=== PATIENT | male | born 1930 | race Asian ===

== ENCOUNTER 2016-07-27 19:02 | Emergency (ER) | payer MEDICARE ==
[~2016-07-27] VITALS: Ht 172.7 cm; Wt 99.8 kg
[~2016-07-27 19:02] MED LIST: AMLO10TA88 PO; CLOP75TA2 PO; FURO-150 PO; GLIP10TA11 PO; HYDR-4039 PO; METF-305 PO; METO100T PO; NORT10CA5 PO; SIMV10TA6 PO
[2016-07-27 19:08] VITALS: BP_SYST 181
--- NOTE | 2016-07-27 19:08 | NUR ---
Placed in room 07 . Placed on belly dancer, blood pressure machine and pulse oximeter. To gown for exam. Side rails up. Report given to KAMLESH Vuong.
--- NOTE | 2016-07-27 19:10 | NUR ---
Patient AAO x4, sitting in bed, able to verbalize needs, patient c/o N/V X 1 HR. Patient states he had a cheeseburger "1 hr ago" and then began to vomit profusely. Denies pain, denies chest pain, denies shortness of breath. Patient BP and HR elevated, MD made aware. No acute distress noted. Will continue to monitor.
--- NOTE | 2016-07-27 19:14 | NUR ---
ER at bedside examining patient.
[2016-07-27] MEDS ORDERED: MAG HYDROX/AL HYDROX/SIMETH 30 ML, BELLADONNA ALKALOIDS/PHENOBARB 10 ML, LIDOCAINE VISC... PO ONE ×3 (19:15)
[2016-07-27] MEDS ORDERED: KETOROLAC TROMETHAMINE 30 MG VIAL IVP ONE (19:15)
[2016-07-27] MEDS ORDERED: ONDANSETRON HCL 4 MG/2 ML VIAL IVP ONE (19:15)
--- NOTE | 2016-07-27 19:30 | NUR ---
Patient daughter at bedside.
[2016-07-27 19:47] LABS: HEMOGLOBIN 13.6 g/dL (14.0-18.0); MEAN CORPUSCULAR HEMOGLOBIN 31 pg (27-31); MEAN CORPUSCULAR HGB CONC 33 % (32-36); MEAN CORPUSCULAR VOLUME 95 fL (79.0-98.0); PLATELET COUNT (AUTO) 205 K/uL (130-430); RED BLOOD CELL COUNT(AUTO) 4.34 MIL/uL (4.2-6.2); RED CELL DISTRIBUTION WIDTH 14.9 % (9.0-15.0); WHITE BLOOD COUNT (AUTO) 24.4 K/uL (4.8-10.8)
[2016-07-27 19:48] LABS: ANION GAP 10 (5-15); CHLORIDE 102 mmol/L (98-107); CREATININE 3.18 mg/dL (0.55-1.30); GLUCOSE 142 mg/dL (70-99); POTASSIUM 4.4 mmol/L (3.5-5.1); SODIUM SERUM 140 mmol/L (136-145); UREA NITROGEN, BLOOD 43 mg/dL (8-21)
[2016-07-27 19:49] LABS: PROTHROMBIN TIME 10.8 SECS (9.5-12.5)
[2016-07-27 20:07] LABS: BAND % (MANUAL) 9 % (0-6); BASOPHILS % (MANUAL) 0 % (0-2); EOSINOPHILS % (MANUAL) 0 % (0-7); LYMPHOCYTES % (MANUAL) 6 % (20-46); MONOCYTES % (MANUAL) 3 % (0-11)
[2016-07-27 20:12] LABS: ALANINE AMINOTRANSFERASE 23 U/L (12-78); ALBUMIN 3.5 g/dL (3.4-4.8); ASPARTATE AMINOTRANSFERASE 29 U/L (10-37); LIPASE 233 U/L (73-393); TOTAL BILIRUBIN 0.3 mg/dL (0.0-1.0); TOTAL PROTEIN, SERUM 8.8 g/dL (6.4-8.3)
[2016-07-27 20:24] LABS: BILIRUBIN,URINE NEGATIVE (NEGATIVE); BLOOD, URINE 1+ (NEGATIVE); COLOR,URINE YELLOW (YELLOW); GLUCOSE,URINE 1+ (NEGATIVE); KETONES,URINE NEGATIVE (NEGATIVE); NITRITE, URINE NEGATIVE (NEGATIVE); PH,URINE 7.5 (5.0-8.0); PROTEIN URINE 2+ (NEGATIVE); UROBILINOGEN,URINE 0.2 (0.2-1.0)
[2016-07-27 20:32] LABS: CLARITY/URINE HAZY (CLEAR); LEUKOCYTE ESTERASE ,URINE 3+ (NEGATIVE)
[2016-07-27 20:33] LABS: BACTERIA,URINE MODERATE /HPF (None Seen); RBC,URINE 0-3 /HPF (0-3); WBC,URINE 50-80 /HPF (0-3)
[2016-07-27 20:34] LABS: MUCUS,URINE None Seen /LPF (None Seen)
[2016-07-27] MEDS ORDERED: LEVOFLOXACIN 500 MG/D5W 100 ML IV ONE (20:45)
--- NOTE | 2016-07-27 20:49 | NUR ---
Urine culture taken, no blood culture order at this time per Dr. Cavazos "no blood cultures needed."
--- NOTE | 2016-07-27 23:19 | NUR ---
Report given to [facility] EMT, patient vital signs stable, patient family aware of transfer. No acute distress noted.
[2016-07-27 23:20] VITALS: BP_SYST 155
--- NOTE | 2016-07-27 23:20 | NUR ---
Patient to be transferred to [facility]. Is being transferred due to insurance requirements. Receiving facility has accepting physician and available space. ER physician has signed transfer form. Patient or responsible alliance party has agreed to transfer and signed form. Patient belongings inventoried and will be sent with patient. Copy of nursing notes, lab reports, EKG, Physicians Orders and X-rays to be sent with patient. Report called to KAMLESH Cote at receiving facility. Receiving physician is Dr. Strauss. [facility] has been called for transfer by [place]. ETA is now.
--- NOTE | 2016-07-30 12:56 | NUR ---
RECEIVED FINAL URINE CULTURE, PT WAS GIVEN ANTIBIOTICS THAT THEY ARE SENSITIVE TO, NO FURTHER ACTIONS NEEDED.
== END 2016-07-27 23:20 | disposition short-term general hospital (02) ==
LOC: SED 19:02
DX: N39.0 Urinary tract infection, site not specified (principal); E11.9 Type 2 diabetes mellitus without complications; I10 Essential (primary) hypertension; Z88.0 Allergy status to penicillin; Z86.73 Personal history of transient ischemic attack (TIA), and cerebral infarction without residual deficits; Z99.2 Dependence on renal dialysis
CPT/HCPCS: 36415; 71010; 80053; 81000; 82962; 83605; 83690; 84484; 85007; 85027; 85610; 87086; 93005; 96365; 96375; 99285; J1956; J2001; J2405; 87186-TC; J1885

== ENCOUNTER 2016-09-07 10:17 | Emergency (ER) | payer MEDICARE ==
[~2016-09-07] VITALS: Ht 167.6 cm; Wt 72.6 kg
[2016-09-07 10:24] VITALS: BP_SYST 130
[2016-09-07] MEDS ORDERED: ACETAMINOPHEN 325 MG TABLET PO ONE (11:00)
[2016-09-07 11:25] LABS: BASOPHILS # (AUTO) 0.1 K/uL (0.0-0.2); BASOPHILS % (AUTO) 0.5 % (0.0-2.0); EOSINOPHILS # (AUTO) 0.2 K/uL (0.0-0.4); EOSINOPHILS % (AUTO) 1.5 % (0.0-4.0); HEMATOCRIT 40.7 % (36-54); HEMOGLOBIN 13.2 g/dL (14.0-18.0); LYMPHOCYTES # (AUTO) 1.4 K/uL (1.0-5.5); LYMPHOCYTES % (AUTO) 12.3 % (20.5-51.5); MEAN CORPUSCULAR HEMOGLOBIN 30 pg (27-31); MEAN CORPUSCULAR HGB CONC 32 % (32-36); MEAN CORPUSCULAR VOLUME 94 fL (79.0-98.0); MONOCYTES # (AUTO) 0.8 K/uL (0.0-1.0); MONOCYTES % (AUTO) 7.4 % (1.7-9.3); NEUTROPHILS # (AUTO) 8.5 K/uL (1.8-7.7); NEUTROPHILS % (AUTO) 78.3 % (40.0-70.0); PLATELET COUNT (AUTO) 150 K/uL (130-430); RED BLOOD CELL COUNT(AUTO) 4.34 MIL/uL (4.2-6.2); RED CELL DISTRIBUTION WIDTH 14.1 % (9.0-15.0)
[2016-09-07 11:29] LABS: PROTHROMBIN TIME 10.4 SECS (9.5-12.5)
[2016-09-07 11:31] LABS: ANION GAP 7 (5-15); CALCIUM 8.5 mg/dL (8.4-11.0); CHLORIDE 103 mmol/L (98-107); CREATININE 3.23 mg/dL (0.55-1.30); GLUCOSE 120 mg/dL (70-99); SODIUM SERUM 139 mmol/L (136-145); UREA NITROGEN, BLOOD 34 mg/dL (8-21)
[2016-09-07 13:51] VITALS: BP_SYST 129
== END 2016-09-07 13:51 | disposition home or self-care (01) ==
LOC: SED 10:17
DX: S22.089A Unspecified fracture of T11-T12 vertebra, initial encounter for closed fracture (principal); S32.019A Unspecified fracture of first lumbar vertebra, initial encounter for closed fracture; R51 Headache; R42 Dizziness and giddiness; N28.9 Disorder of kidney and ureter, unspecified; E11.29 Type 2 diabetes mellitus with other diabetic kidney complication; Z88.0 Allergy status to penicillin; Z86.73 Personal history of transient ischemic attack (TIA), and cerebral infarction without residual deficits; W18.09XA Striking against other object with subsequent fall, initial encounter; Y93.89 Activity, other specified; Y92.89 Other specified places as the place of occurrence of the external cause; Y99.8 Other external cause status
CPT/HCPCS: 36415; 70450-TC; 72125-TC; 72131; 80048; 84484; 85025; 85610-TC; 85730-TC; 99285

== ENCOUNTER 2018-03-30 12:02 | Emergency (ER) | payer MEDICARE ==
[~2018-03-30] VITALS: Ht 170.2 cm; Wt 65.8 kg
[2018-03-30 12:02] VITALS: BP_SYST 189
[~2018-03-30 12:02] MED LIST changes: -METF-305 PO; +METF10004 PO
--- NOTE | 2018-03-30 12:02 | NUR ---
Pt wheeled to bed 8
--- NOTE | 2018-03-30 12:33 | NUR ---
pt c/o slip and fall on to back/head. now has pain on head, neck, and shoulders.
--- NOTE | 2018-03-30 13:01 | NUR ---
ER at bedside examining patient.
[2018-03-30 15:12] LABS: BASOPHILS % (AUTO) 0.3 % (0.0-2.0); EOSINOPHILS # (AUTO) 0.1 K/uL (0.0-0.4); EOSINOPHILS % (AUTO) 0.5 % (0.0-4.0); HEMATOCRIT 38.5 % (36-54); HEMOGLOBIN 12.3 g/dL (14.0-18.0); LYMPHOCYTES % (AUTO) 8.8 % (20.5-51.5); MEAN CORPUSCULAR HEMOGLOBIN 31 pg (27-31); MEAN CORPUSCULAR HGB CONC 32 % (32-36); MEAN CORPUSCULAR VOLUME 98 fL (79.0-98.0); MONOCYTES # (AUTO) 0.6 K/uL (0.0-1.0); MONOCYTES % (AUTO) 5.5 % (1.7-9.3); NEUTROPHILS # (AUTO) 9.1 K/uL (1.8-7.7); NEUTROPHILS % (AUTO) 84.9 % (40.0-70.0); PLATELET COUNT (AUTO) 249 K/uL (130-430); RED BLOOD CELL COUNT(AUTO) 3.92 MIL/uL (4.2-6.2); WHITE BLOOD COUNT (AUTO) 10.8 K/uL (4.8-10.8)
[2018-03-30] MEDS ORDERED: KETOROLAC TROMETHAMINE 60 MG/2 ML VIAL IM ONE (15:15)
[2018-03-30 15:23] LABS: ANION GAP 8 (5-15); CALCIUM 8.7 mg/dL (8.4-11.0); CHLORIDE 102 mmol/L (98-107); CREATININE 3.11 mg/dL (0.55-1.30); GLUCOSE 209 mg/dL (70-99); POTASSIUM 4.5 mmol/L (3.5-5.1); SODIUM SERUM 137 mmol/L (136-145); UREA NITROGEN, BLOOD 41 mg/dL (8-21)
[2018-03-30 15:28] LABS: ALANINE AMINOTRANSFERASE 32 U/L (12-78); ALBUMIN 3.2 g/dL (3.4-4.8); ASPARTATE AMINOTRANSFERASE 29 U/L (10-37); TOTAL BILIRUBIN 0.4 mg/dL (0.0-1.0)
--- NOTE | 2018-03-30 15:31 | NUR ---
Pain medication was given to pt, tolerated well
--- NOTE | 2018-03-30 17:50 | NUR ---
PATIENT DISCHARGED BY ANDREEA WOLFF RN. ALL DC PAPERWORK AND EXPLANATIONS DONE WITH HER. PATIENT AND FAMILY VERBALIZED UNDERSTANDING OF INSTRUCTIONS
[2018-03-30 19:40] VITALS: BP_SYST 158
== END 2018-03-30 19:40 | disposition home or self-care (01) ==
LOC: SED 12:02
DX: S16.1XXA Strain of muscle, fascia and tendon at neck level, initial encounter (principal); E11.22 Type 2 diabetes mellitus with diabetic chronic kidney disease; I12.0 Hypertensive chronic kidney disease with stage 5 chronic kidney disease or end stage renal disease; N18.6 End stage renal disease; Z99.2 Dependence on renal dialysis; W18.09XA Striking against other object with subsequent fall, initial encounter; Y93.89 Activity, other specified; Y92.89 Other specified places as the place of occurrence of the external cause; Y99.8 Other external cause status
CPT/HCPCS: 36415; 72125; 80053; 82962; 85025; 96372; 99284; J1885